=== PATIENT | female | born 1950 | race Caucasian/White ===

== ENCOUNTER 2016-09-14 11:33 | Inpatient (IN) | payer MEDICARE, BC, OTHER ==
[~2016-09-14 11:33] MED LIST: ADVIL200 M3 PO; ALENDRONATE SOD35 M1 PO; BIOTIN5000 MCG PO; CITRACAL SOFT1 EACH PO; COQ-10100 M1 PO; CYTOMEL25 MC1 PO; ECHINACEA & GO1 EACH PO; K2 PO; LUCENTIS IO; LUTEIN PO; PRESERVISION A1 EAC5 PO; RESTASIS0.4 ML/EA OP; SYNTHROID25 MC1 PO; TYLENOL EXTRA500 M1 PO; VITAMIN D31000 UNI3 PO; WELCHOL625 M1 PO; ZEAXANTHIN PO; [UNRECOGNIZED DRUG - OTHER] PO
[2016-09-14 12:26] LABS: BASO % 0.4 % (0-2); EOS % 2.5 % (0-7); EOSINOPHIL ABSOLUTE COUNT 0.1 tho/cmm (0.0-0.7); HCT-HEMATOCRIT 39.1 % (34.0-49.0); HGB-HEMOGLOBIN 13.2 gm/dl (12.0-15.5); IMMATURE GRANULOCYTES ABSOLUTE 0.01 tho/cmm (0-0.03); IMMATURE GRANULOCYTES PERCENT 0.2 % (0-0.3); LYMPH % 26.2 % (20-45); LYMPH ABSOLUTE COUNT 1.3 tho/cmm (0.8-4.5); MCH (MEAN CORPUSCULAR HGB) 27.6 pg (28.0-32.0); MCHC MEAN CORPUSCULAR HGB CONC 33.8 % (32.0-36.0); MCV (MEAN CELL VOLUME) 81.6 fl (82.0-96.0); MEAN PLATELET VOLUME 9.9 cmc (9.4-12.4); MONO % 5.7 % (0-12); MONOCYTE ABSOLUTE COUNT 0.3 tho/cmm (0.0-1.2); NEUTROPHIL ABSOLUTE COUNT 3.3 tho/cmm (1.6-8.0); NEUTROPHIL-AUTOMATED 3.3 tho/cmm (1.6-8.0); PLATELET COUNT 200 tho/cmm (150-450); RED BLOOD COUNT 4.79 mil/cmm (4.00-5.20); RED CELL DISTRIBUTION WIDTH 14.1 % (12.4-16.4); WHITE BLOOD COUNT 5.1 tho/cmm (4.0-10.0)
[2016-09-14 12:36] LABS: ANION GAP 11 mmol/L (0-20); BLOOD UREA NITROGEN 5 mg/dl (6-24); CALCIUM 8.3 mg/dl (8.5-10.5); CARBON DIOXIDE-VENOUS 27 mmol/L (22-32); CHLORIDE 103 mmol/l (96-110); CREATININE 0.61 mg/dl (0.50-1.10); GLUCOSE 98 mg/dL (70-110); POTASSIUM 3.7 mmol/L (3.7-5.1); SODIUM 137 mmol/L (135-145); eGFR VALUE FOR BLACK >90 mL/Min
[2016-09-15 05:44] LABS: BASO % 0.1 % (0-2); HCT-HEMATOCRIT 31.2 % (34.0-49.0); HGB-HEMOGLOBIN 10.3 gm/dl (12.0-15.5); IMMATURE GRANULOCYTES ABSOLUTE 0.01 tho/cmm (0-0.03); IMMATURE GRANULOCYTES PERCENT 0.1 % (0-0.3); LYMPH % 8.5 % (20-45); LYMPH ABSOLUTE COUNT 0.7 tho/cmm (0.8-4.5); MCH (MEAN CORPUSCULAR HGB) 27.1 pg (28.0-32.0); MCV (MEAN CELL VOLUME) 82.1 fl (82.0-96.0); MEAN PLATELET VOLUME 9.8 cmc (9.4-12.4); MONO % 7.4 % (0-12); MONOCYTE ABSOLUTE COUNT 0.6 tho/cmm (0.0-1.2); NEUTROPHIL ABSOLUTE COUNT 6.6 tho/cmm (1.6-8.0); NEUTROPHIL-AUTOMATED 6.6 tho/cmm (1.6-8.0); NEUTROPHILS % 83.9 % (40-80); PLATELET COUNT 204 tho/cmm (150-450); RED CELL DISTRIBUTION WIDTH 14.5 % (12.4-16.4)
[2016-09-15 05:53] LABS: WHITE BLOOD COUNT 7.9 tho/cmm (4.0-10.0)
[2016-09-15 05:58] LABS: ANION GAP 11 mmol/L (0-20); BLOOD UREA NITROGEN 5 mg/dl (6-24); CALCIUM 7.2 mg/dl (8.5-10.5); CARBON DIOXIDE-VENOUS 25 mmol/L (22-32); CHLORIDE 105 mmol/l (96-110); CREATININE 0.57 mg/dl (0.50-1.10); GLUCOSE 115 mg/dL (70-110); POTASSIUM 3.8 mmol/L (3.7-5.1); SODIUM 137 mmol/L (135-145); eGFR VALUE FOR BLACK >90 mL/Min
--- NOTE | 2016-09-15 21:50 | NUR ---
VIRTUAL CARE NOTE: ASSESSMENT DEFERRED. PT. SLEEPING.
[2016-09-16] MEDS ORDERED: NORCO 5-325 TA1 EACH PO (15:19)
--- NOTE | 2016-09-16 15:42 | NUR ---
VIRTUAL CARE NOTE: PT DRESSED SITTING ON CHAIR READY FOR DISCHARGE INSTRUCTIONS. INFORMATION GIVEN TO PT, QUESTIONS ANSWERED, PT DENIES FURTHER QUESTIONS OR ONCERNS. 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
== END 2016-09-16 15:50 | DRG 331 ==
LOC: SHSA 11:33 → ORW 14:20 → PACU 16:13 → 5WD 17:46
PROVIDERS: Anesthesiology; ADMIT Surgery
PROC: 0DTF0ZZ Resection of Right Large Intestine, Open Approach (ICD-10-PCS; principal; 2016-09-14)
DX: D12.2 Benign neoplasm of ascending colon (principal)
CPT/HCPCS: C9113; J0131; J0780; J1200; J1335; J1650; J2270; J2550; J3010; J7030